=== PATIENT | female | born 2000 | race Caucasian/White ===

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

== ENCOUNTER 2020-07-30 16:42 | Emergency (ER) | payer OTHER, MEDICAID ==
[~2020-07-30] VITALS: Ht 160 cm; Wt 54.4 kg
[~2020-07-30 16:42] MED LIST changes: +NABUMETONE 750750 M1 PO; +ROBAXIN 750 MG750 M1 PO
[2020-07-30] MEDS ORDERED: IBUPROFEN 600600 M1 PO (18:43)
[2020-07-30 18:56] VITALS: BP 110/79
== END 2020-07-30 18:57 | disposition home or self-care (01) ==
LOC: M.ERS 16:42
DX: M25.531 Pain in right wrist (principal); W10.8XXA Fall (on) (from) other stairs and steps, initial encounter; Y93.89 Activity, other specified; Y92.89 Other specified places as the place of occurrence of the external cause; Y99.8 Other external cause status

== ENCOUNTER 2020-12-22 20:41 | Emergency (ER) | payer OTHER, MEDICAID ==
[~2020-12-22] VITALS: Ht 160 cm; Wt 52.6 kg
[2020-12-22 20:50] VITALS: BP 114/75
[2020-12-22] MEDS ORDERED: PRENATABS FA T1 EACH PO (20:53)
[2020-12-22] MEDS ORDERED: VITAMIN B6100 MG/2.5 PO (20:53)
[2020-12-22] MEDS ORDERED: UNISOM25 MG PO (20:54)
== END 2020-12-22 21:24 | disposition home or self-care (01) ==
LOC: M.ERS 20:41
DX: O46.91 Antepartum hemorrhage, unspecified, first trimester (principal); Z3A.14 14 weeks gestation of pregnancy

== ENCOUNTER 2021-07-07 23:55 | Emergency (ER) | payer OTHER, MEDICAID ==
[~2021-07-07] VITALS: Ht 160 cm; Wt 63.5 kg
[~2021-07-07 23:55] MED LIST changes: +PRENATABS FA T1 EACH PO; +UNISOM25 MG PO; +VITAMIN B6100 MG/2.5 PO
[2021-07-08 01:18] LABS: URINE BLOOD 1+ (Negative); URINE COLOR YELLOW; URINE GLUCOSE-RANDOM NEGATIVE (Negative); URINE KETONES 1+ (Negative); URINE LEUKOCYTES-REFLEX 1+ (Negative); URINE NITRITE-REFLEX NEGATIVE (Negative); URINE PROTEIN NEGATIVE (Negative)
[2021-07-08 01:19] LABS: URINE BILIRUBIN 1+ (Negative); URINE CLARITY SL CLOUDY
[2021-07-08 01:27] LABS: AMP/METHAMP Negative (Negative); BACTERIA-REFLEX >30 Many /HPF (None Seen); BARBITURATES Negative (Negative); BENZODIAZEPINES Negative (Negative); CASTS None Seen /LPF (None Seen); COCAINE Negative (Negative); CRYSTALS None Seen /LPF (None Seen); METHADONE Negative (Negative); MUCUS 4-6 Moderate strn/LPF (None Seen); OPIATES Negative (Negative); PCP Negative (Negative); SQUAMOUS 0-3 Few /LPF (0-3); THC Negative (Negative); TRANSITIONAL EPITHEL CELL 0-3 Few /LPF (None Seen)
[2021-07-08 01:40] LABS: ICTOTEST (BILI CONFIRMATORY) Negative (Negative)
[2021-07-08 03:03] VITALS: BP 115/70
== END 2021-07-08 03:05 | disposition home or self-care (01) ==
LOC: M.ERS 23:55
PROVIDERS: Personal Emergency Response Attendant
DX: S63.502A Unspecified sprain of left wrist, initial encounter (principal); S50.11XA Contusion of right forearm, initial encounter; Y04.0XXA Assault by unarmed brawl or fight, initial encounter; Y93.89 Activity, other specified; Y92.810 Car as the place of occurrence of the external cause; Y99.8 Other external cause status